=== PATIENT | female | born 1985 | race Caucasian/White ===

== ENCOUNTER 2018-05-18 23:19 | Emergency (ER) | payer SELFPAY, OTHER ==
[2018-05-19] MEDS: KETOROLAC 60 MG INJ IM (04:21)
== END 2018-05-19 04:46 | disposition home or self-care (01) ==
LOC: FTE 23:19
DX: J03.90 Acute tonsillitis, unspecified (principal)
CPT/HCPCS: 81025; 96372; 99284-25